=== PATIENT | female | born 1955 | race Caucasian/White ===

== ENCOUNTER → 2020-05-10 | Day surgery (SDC) | payer MEDICARE, OTHER ==
[~2020-05-10] VITALS: Ht 162.6 cm; Wt 104.8 kg
[2020-05-10] VITALS (11 sets, daily range): BP systolic 117–209; BP diastolic 70–109
[~2020-05-10] MED LIST: ASPIRIN325 MG PO; B COMPLEX1 EACH PO; BENADRYL25 M1 PO; BERBERINE PO; COCONUT OIL1000 MG PO; COQ-10100 MG PO; CRANBERRY-PROB1 EACH PO; FISH OIL-OMEGA 3 PO; HYDRALAZINE HCL 20 MG/ML VIAL ONE; IOPAMIDOL 370 MG/ML 200 ML INFUS..BTL INJ ONE; JANUVIA100 MG PO; LISINOPRIL10 MG PO; MAGNESIUM PO; MELATONIN3 MG PO; METFORMIN HCL500 MG PO; METOPROLOL TARTRATE INJ 1 MG/ML VIAL ONE; MIDAZOLAM HCL 2 MG/2 ML VIAL ONE; NITROGLYCERIN 400 MCG/SPRAY 4.9 GM BTL ONE; PANTOPRAZOLE SO40 MG PO; PLAVIX75 MG PO; TURMERIC538 MG PO; VITAMIN D PO; ZETIA10 MG PO; ZYRTEC10 MG PO
--- NOTE | 2020-05-10 09:25 | NUR ---
0925am PREP NOTE PROCEDURAL .................................................................................. Pt in #9, prepped for procedure. Identifier Alert oriented and appropriate, PERRLA, respirations even and unlabored to room air. Pulses x4 extremities equal and strong. Pedal pulses PT/DP palpable Dp/PT and marked. Cap fill brisk < 3 sec. bilateral feet warm to touch. Pt states has "white coat syndrome"bp elevated took bp meds last pm. Skin warm and dry integrity appears intact in general. IV left hand #20 started and presents healthy w/o s/s of infiltration or complaint. Abdomen soft and supple. pt offered toileting, denies need to urinate or defecate. Personal affects with patient. Family at bedside. Pt and family verbalizes understanding of POC. at bedside.[facility] cell [phone] bed low and locked, side rails up x2 and call light at side. -ruperto/rn
--- NOTE | 2020-05-10 12:03 | NUR ---
1203pm RECEIVING NOTE [facility]....s/p [facility] rt groin closure angioseal no fix Cardiovascular surgeon evaluation to be f/o, Dr Philip wants call before dc at 4pm due to high blood pressure. Bedside report received from BUSHRA Cintron. Identifierx2. Alert oriented and appropriate, PERRLA, respirations even and unlabored to room air. Pulses x4 extremities equal and strong. Pedal pulses PT/DP palpable and marked. Cap fill brisk < 3 sec. Skin warm and dry integrity appears D/I. IV 20g to left hand, presents healthy w/o s/s of infiltration or complaint. Abdomen soft and supple. pt offered toileting, denies need to urinate or defecate. No personal affects with patient. Family at bedside. Pt and family verbalizes understanding of POC. CD and diagram ordered for pt dc. Currently w/o complaint of pain or need. ruperto/rn
--- NOTE | 2020-05-10 13:00 | NUR ---
1300p Talked to Md aware Bp elevation ok with slight elevation. Aware meatus wick in place to help with frequent urination.Md wants call prior to dc and 4pm. Offered sandwich meal refused at this time. Pt had some emotional release due to information of higher level of care required to be scheduled. ds/rn
--- NOTE | 2020-05-10 16:00 | NUR ---
1600pm [facility] DIS[facility]GE NURSING NOTE Pt meets DC criteria. Rt groin assessed for s/s of complication and presence of hematoma. Skin warm, dry, no discolor, and pulses present. IV removed from let hand, Distal tip appears intact. VS WNL. Pt denies pain, sob, or need at this time. Family here. walked pt to bathroom. Phoned report to Dr Philip ok to dc Has copies of Cds and diagram for cardiovascular surgeon Aware to have f/o Wednesday or Wednesday Md to coordinate,Aware of importance to call Md is any s/s occurs cardiac issus.Review of discharge paperwork and follow up instructions. verbalized understanding. Pt to wheelchair and transported to front of hospital. Transferred to private vehicle under own strength w/o incident with DC paperwork in hand. ds/rn
--- NOTE | 2020-05-10 19:10 | History and Physical ---
HISTORY OF PRESENT ILLNESS: The patient has come here for an outpatient heart catheterization and coronary angiogram for further evaluation of angina pectoris. She is a known patient with coronary artery disease, previous myocardial infarction, has a carotid stent put in this hospital 9 years ago. At that time, the patient had RCA stent. The patient underwent a stress test. The patient developed chest pain, some mild ST-T changes with peak exercise. The patient is a known patient with type 2 diabetes mellitus, hypertension, and hyperlipidemia. The patient is obese. The patient is [id number] active. 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 , has grown children. Does not drink alcohol and does not abuse smoking. smokes at this time. MEDICATIONS: Include aspirin, Plavix, anticholesterol, beta-blockers, and antidiabetic medications. PHYSICAL EXAMINATION: VITAL SIGNS: On clinical examination, blood pressure about is 160/80. HEART: Normal. LUNGS: Normal. ABDOMEN: Normal. NEUROLOGIC: Normal. SKIN: Normal. IMAGING STUDIES: EKG, no acute changes. IMPRESSION: 1. Angina pectoris. 2. Coronary artery disease, stent placement to RCA 9 years ago. 3. Obesity. 4. Hypertension. 5. Type 2 diabetes mellitus. PLAN: Admitted for outpatient heart catheterization and carotid arteriogram. MD NINA Bates/MODL /[id number]
--- NOTE | 2020-05-10 22:22 | Discharge Summary ---
DATE OF PROCEDURE: 05/10/2020. DISCHARGE DIAGNOSES: 1. Angina pectoris. 2. Triple-vessel coronary artery disease. 3. Hypertension. 4. Type 2 diabetes mellitus. 5. Hyperlipidemia. 6. Obesity. PROCEDURE: Dr. Philip; left heart catheterization, LV angiogram, coronary angiogram, right innominate arteriogram, left carotid arteriogram, left subclavian arteriogram, and MANCINI arteriogram. HOSPITAL COURSE: The patient came with angina pectoris with positive stress test and the patient has triple-vessel disease. The patient had stent put in the RCA about 9 years ago. At that time, repaired the stent and the patient had myocardial infarction. At this time, the patient advised to coronary artery bypass surgery. The patient advised to continue all medications include aspirin, Plavix, anticholesterol, antidiabetic, antihypertensive medication. Advised not to take metformin a couple of days and I am going to get a cardiovascular surgical opinion for coronary artery bypass surgery. I advised low-fat diet, low-salt diet. Moderate physical activities. MD NINA Bates/JASONL /[id number]
--- NOTE | 2020-05-10 22:31 | Operative Report ---
DATE OF PROCEDURE: 05/10/2020 SURGEON: Debi Philip MD PROCEDURES: Left heart catheterization, left ventricle angiogram, coronary angiogram, and right innominate arteriogram, left carotid arteriogram, left subclavian arteriogram, right iliac arteriogram. INDICATIONS FOR PROCEDURE: Angina pectoris, hypertension, type 2 diabetes, hyperlipidemia, history of MO, and stent placement 9 years ago in this hospital. DESCRIPTION OF PROCEDURE: The procedure done at [facility]. After informed consent with conscious sedation, the right femoral artery accessed. After suitable draping, the patient's sterilization in the right coronary area with a lidocaine and conscious sedation, I performed the procedure through the right femoral artery puncture. Results of test as follows: Coronary angiogram; right coronary arteriogram shows dominant right coronary artery, distal RCA and involving the PL artery and PD artery of 80% lesion noted. Some diffuse disease of PD was noted. The left coronary arteriogram shows normal left main artery. LAD has approximately 90% lesion noted and mid LAD was about 80% to 90% lesion noted. Circumflex artery has approximately 70% to 80% lesion noted. OM1 has 80% lesion, OM2 has 80%, and OM3 has 80% lesion noted. Left ventricular angiogram showed ejection fraction of 60%. Right innominate arteriogram shows normal right subclavian artery. Right carotid artery has 15% plaque noted, right carotid bulb and right internal carotid artery origin. Left carotid arteriogram showed no significant lesion except 10% plaque noted at the left carotid bulb. Left subclavian artery was normal. MANCINI arteriogram was normal. Right femoral artery was closed with Angio-Seal closure device. Recommend aortocoronary bypass surgery. The patient at this time doing well. Debi Philip MD PVB/MODL /[id number]
== END | disposition home or self-care (01) ==
LOC: CATH LAB 08:06
PROVIDERS: ATTEND Internal Medicine Cardiovascular Disease
DX: I25.119 Atherosclerotic heart disease of native coronary artery with unspecified angina pectoris (principal); I65.23 Occlusion and stenosis of bilateral carotid arteries; I25.2 Old myocardial infarction; I10 Essential (primary) hypertension; E78.5 Hyperlipidemia, unspecified; E11.9 Type 2 diabetes mellitus without complications; E66.9 Obesity, unspecified; Z01.810 Encounter for preprocedural cardiovascular examination; Z01.812 Encounter for preprocedural laboratory examination; Z11.59 Encounter for screening for other viral diseases; Z79.84 Long term (current) use of oral hypoglycemic drugs; Z79.02 Long term (current) use of antithrombotics/antiplatelets; Z79.82 Long term (current) use of aspirin; Z95.5 Presence of coronary angioplasty implant and graft
CPT/HCPCS: 36222; 93005; 93458; C1887; J0360; J2250; Q9967; U0002; 99152; 99153